=== PATIENT | female | born 1945 | race Caucasian/White ===

== ENCOUNTER 2023-12-30 19:52 | Inpatient (IN) | payer BC, OTHER ==
[~2023-12-30] VITALS: Ht 165.1 cm; Wt 43.5 kg
[2023-12-30] MEDS: IPRATROPIUM BROM 0.5 MG/2.5ML INH SOL HHN ONE (20:28)
[2023-12-30] MEDS: ALBUTEROL SULF 2.5 MG/0.5ML(0.5%) NEB SOLN HHN ONE (20:29)
[2023-12-30 20:45] LABS: Basophils # (auto) 0 10 ^3/uL (0-0.2); Basophils % (auto) 0.2 % (0.0-2.0); Eosinophils # (auto) 0.1 10 ^3/uL (0-0.8); Eosinophils % (auto) 0.6 % (0.0-7.0); Hematocrit 39.8 % (36.0-46.0); Lymphocytes # (auto) 1.3 10 ^3/uL (0.4-5.4); Lymphocytes % (auto) 12.8 % (10.0-50.0); Mean Corpuscular Hemoglobin 31.1 pg (28.0-32.0); Mean Corpuscular Hgb Conc. 32.8 g/dL (32.0-36.0); Mean Corpuscular Volume 94.9 fL (80.0-100.0); Monocytes # (auto) 0.2 10 ^3/uL (0-1.3); Monocytes % (auto) 2.4 % (0.0-12.0); Neutrophils # (auto) 8.6 10 ^3/uL (1.6-8.6); Nucleated Red Blood Cells % 0.1 %; Red Blood Cells 4.19 10^6/uL (4.0-5.20); Red Cell Distribution Width 15.1 % (11.8-14.3); White Blood Cell 10.3 10^3/uL (4.4-10.8)
[2023-12-30] MEDS: methylPREDNISolone SOD SUCC 125 MG/2 ML VL IV ONE (21:01)
[2023-12-30 21:08] LABS: Chloride 106 mmol/L (98-107); Potassium 3.9 mmol/L (3.5-5.1); Sodium 140 mmol/L (136-145)
[2023-12-30 21:09] LABS: Anion Gap 5 (5-15); Calcium 9.5 mg/dL (8.7-10.4); Carbon Dioxide 29 mmol/L (20-30)
[2023-12-30 21:14] LABS: BUN/Creatinine Ratio 11.1 (10.0-20.0); Blood Urea Nitrogen 7 mg/dL (9-23); Glucose 108 mg/dL (74-106)
[2023-12-30] MEDS ORDERED: NITROGLYCERIN 0.4 MG SL TAB SL PRN (21:15)
[2023-12-30] MEDS ORDERED: ALBUTEROL SULF 2.5 MG/0.5ML(0.5%) NEB SOLN NEB PRN (21:15)
[2023-12-30] MEDS ORDERED: MORPHINE SULFATE INJ 2 MG/ml SYRG IV PRN (21:15)
[2023-12-30] MEDS ORDERED: ONDANSETRON HCL 4 MG/2 ML VIAL IV PRN (21:15)
[2023-12-30] MEDS ORDERED: IPRATROPIUM BROM 0.5 MG/2.5ML INH SOL NEB PRN (21:15)
[2023-12-30 21:26] VITALS: BP 114/79; PULSE 114; RESP 14; TEMP 98.3; O2SAT 96
[2023-12-31] VITALS (13 sets, daily range): BP systolic 94–149; BP diastolic 42–78; PULSE 71–114; RESP 14–20; TEMP 98–98.8; O2SAT 91–96
[2023-12-31] MEDS: methylPREDNISolone SOD SUCC 40 MG/ML VL IV SCH (00:15)
[2023-12-31] MEDS: ATORVASTATIN 20 MG TAB PO SCH (00:15)
[2023-12-31] MEDS: IOHEXOL 350 MG/ML 100ML IJ ONE (01:05)
[2023-12-31] MEDS ORDERED: ALBU108A5 PO (02:19)
[2023-12-31] MEDS ORDERED: IPRA0.00 NEB (02:19)
[2023-12-31] MEDS ORDERED: TIOT17SP INH (02:19)
[2023-12-31] MEDS ORDERED: TRAZ-227 PO (02:19)
[2023-12-31] MEDS ORDERED: PRED10TA PO (02:19)
[2023-12-31] MEDS ORDERED: BUDE1AER16 PO (02:19)
[2023-12-31] MEDS ORDERED: PHEN-1045 PO (02:19)
[2023-12-31] MEDS ORDERED: DENO60SO SC (02:19)
[2023-12-31] MEDS ORDERED: MET50T PO (02:19)
[2023-12-31] MEDS ORDERED: DIAZ10TA3 PO (02:19)
[2023-12-31] MEDS ORDERED: ATOR40TA52 PO (02:19)
[2023-12-31 06:18] LABS: Chloride 104 mmol/L (98-107); Potassium 3.4 mmol/L (3.5-5.1); Sodium 138 mmol/L (136-145)
[2023-12-31 06:19] LABS: Anion Gap 6 (5-15); Carbon Dioxide 28 mmol/L (20-30)
[2023-12-31 06:20] LABS: Calcium 9.3 mg/dL (8.5-10.1)
[2023-12-31 06:25] LABS: BUN/Creatinine Ratio 13.2 (10.0-20.0); Blood Urea Nitrogen 7 mg/dL (9-23); Glucose 155 mg/dL (74-106)
[2023-12-31 06:31] LABS: Basophils # (auto) 0 10 ^3/uL (0-0.2); Eosinophils # (auto) 0 10 ^3/uL (0-0.8); Hematocrit 36.5 % (36.0-46.0); Hemoglobin 12.1 g/dL (12.2-16.2); Lymphocytes # (auto) 0.2 10 ^3/uL (0.4-5.4); Lymphocytes % (auto) 1.5 % (10.0-50.0); Mean Corpuscular Hemoglobin 31.3 pg (28.0-32.0); Mean Corpuscular Hgb Conc. 33.2 g/dL (32.0-36.0); Mean Corpuscular Volume 94.2 fL (80.0-100.0); Monocytes # (auto) 0.2 10 ^3/uL (0-1.3); Monocytes % (auto) 1.6 % (0.0-12.0); Neutrophils # (auto) 11.6 10 ^3/uL (1.6-8.6); Neutrophils % (auto) 96.9 % (37.0-80.0); Red Blood Cells 3.87 10^6/uL (4.0-5.20); Red Cell Distribution Width 14.5 % (11.8-14.3)
[2023-12-31] MEDS: cefTRIAXone 1GM/50ML D5W 50 ML IV SCH (08:54)
[2023-12-31] MEDS: METOPROLOL SUCCINATE XL 50 MG TAB PO SCH (09:05)
[2023-12-31] MEDS: ENOXAPARIN SOD 40 MG/0.4 ML SYRINGE SC SCH (09:06)
[2023-12-31] MEDS: AZITHROMYCIN 500MG/ 250ML 250 ML IV SCH (09:55)
[2023-12-31 11:57] LABS: Triglycerides 41 mg/dL (< 150)
[2023-12-31 11:58] LABS: LDL Cholesterol 60 mg/dL (< 100)
[2023-12-31 11:59] LABS: Cholesterol 186 mg/dL (< 200); HDL Cholesterol 109 mg/dL (40-59)
[2023-12-31] MEDS: ACETAMINOPHEN 325 MG TAB PO PRN (12:50)
[2023-12-31] MEDS: POTASSIUM CHL 20 Meq TABLET PO ONE (12:51)
[2023-12-31] MEDS: traZODone HCL 50 MG TAB PO ONE (22:29)
[2024-01-01] VITALS (8 sets, daily range): BP systolic 122–143; BP diastolic 55–67; PULSE 59–90; RESP 16–18; TEMP 97.3–98.4; O2SAT 93–98
[2024-01-01 06:28] LABS: Basophils # (auto) 0 10 ^3/uL (0-0.2); Basophils % (auto) 0.1 % (0.0-2.0); Eosinophils # (auto) 0 10 ^3/uL (0-0.8); Eosinophils % (auto) 0.1 % (0.0-7.0); Hematocrit 34.7 % (36.0-46.0); Hemoglobin 11.7 g/dL (12.2-16.2); Lymphocytes # (auto) 1.3 10 ^3/uL (0.4-5.4); Lymphocytes % (auto) 9.1 % (10.0-50.0); Mean Corpuscular Hemoglobin 31.3 pg (28.0-32.0); Mean Corpuscular Hgb Conc. 33.8 g/dL (32.0-36.0); Mean Corpuscular Volume 92.8 fL (80.0-100.0); Monocytes # (auto) 0.7 10 ^3/uL (0-1.3); Monocytes % (auto) 5.2 % (0.0-12.0); Neutrophils # (auto) 12.2 10 ^3/uL (1.6-8.6); Neutrophils % (auto) 85.5 % (37.0-80.0); Red Blood Cells 3.75 10^6/uL (4.0-5.20); Red Cell Distribution Width 14.4 % (11.8-14.3); White Blood Cell 14.3 10^3/uL (4.4-10.8)
[2024-01-01 06:46] LABS: Alanine Aminotransferase 98 U/L (7-40); Albumin 3.8 g/dL (3.2-4.8); Alkaline Phosphatase 51 U/L (46-116); Anion Gap 6 (5-15); Aspartate Aminotransferase 71 U/L (13-40); Bilirubin, Total 0.8 mg/dL (0.2-1.0); Blood Urea Nitrogen 12 mg/dL (9-23); Calcium 9.4 mg/dL (8.5-10.1); Carbon Dioxide 26 mmol/L (20-30); Chloride 104 mmol/L (98-107); Glucose 104 mg/dL (74-106); Potassium 3.8 mmol/L (3.5-5.1); Sodium 136 mmol/L (136-145); Total Protein 5.6 g/dL (5.7-8.2)
[2024-01-01 07:55] LABS: Free T3 2.47 pg/mL (2.3-4.2); Free T4 (Free Thyroxine) 1.34 ng/dL (0.89-1.76)
[2024-01-01] MEDS: methylPREDNISolone SOD SUCC 40 MG/ML VL IV SCH ×2 (09:16→13:00)
[2024-01-01] MEDS: levoFLOXacin 750MG 150 ML IV SCH (09:17)
[2024-01-01] MEDS ORDERED: levoFLOXacin 750MG 150 ML IV SCH (10:00)
[2024-01-02 05:00] VITALS: BP 146/72; PULSE 54; RESP 16; TEMP 98.2; O2SAT 96
[2024-01-02 07:56] LABS: Alanine Aminotransferase 89 U/L (7-40); Alkaline Phosphatase 61 U/L (46-116); Anion Gap 5 (5-15); Aspartate Aminotransferase 49 U/L (13-40); BUN/Creatinine Ratio 17.5 (10.0-20.0); Blood Urea Nitrogen 10 mg/dL (9-23); Calcium 9.7 mg/dL (8.7-10.4); Carbon Dioxide 28 mmol/L (20-30); Chloride 105 mmol/L (98-107); Glucose 79 mg/dL (74-106); Potassium 3.8 mmol/L (3.5-5.1); Sodium 138 mmol/L (136-145)
[2024-01-02 07:57] LABS: Bilirubin, Total 0.9 mg/dL (0.2-1.0); Total Protein 6.2 g/dL (5.7-8.2)
[2024-01-02 08:00] VITALS: PULSE 61; PULSE 64; RESP 16; O2SAT 98
[2024-01-02 08:57] VITALS: BP 150/70; PULSE 61; RESP 16; TEMP 98.1; O2SAT 98
[2024-01-02] MEDS ORDERED: levoFLOXacin 750MG 150 ML IV SCH (09:00)
[2024-01-02] MEDS: levoFLOXacin 750MG 150 ML IV SCH (10:56)
[2024-01-02] MEDS ORDERED: LEVO750T40 PO (12:27)
[2024-01-02] MEDS ORDERED: PRED20TA2 PO (12:27)
[2024-01-02 13:00] VITALS: BP 155/82; PULSE 77; RESP 16; TEMP 97.9; O2SAT 90
[2024-01-02] MEDS ORDERED: UMEC1AER IN (13:29)
[2024-01-02 14:05] LABS: Basophils # (auto) 0 10 ^3/uL (0-0.2); Basophils % (auto) 0.2 % (0.0-2.0); Eosinophils # (auto) 0 10 ^3/uL (0-0.8); Eosinophils % (auto) 0.1 % (0.0-7.0); Hematocrit 37.9 % (36.0-46.0); Hemoglobin 12.9 g/dL (12.2-16.2); Lymphocytes # (auto) 0.5 10 ^3/uL (0.4-5.4); Lymphocytes % (auto) 5.5 % (10.0-50.0); Mean Corpuscular Hemoglobin 32.1 pg (28.0-32.0); Mean Corpuscular Hgb Conc. 34.1 g/dL (32.0-36.0); Mean Corpuscular Volume 94.1 fL (80.0-100.0); Monocytes # (auto) 0.2 10 ^3/uL (0-1.3); Monocytes % (auto) 2.3 % (0.0-12.0); Neutrophils # (auto) 8.2 10 ^3/uL (1.6-8.6); Neutrophils % (auto) 91.9 % (37.0-80.0); Red Blood Cells 4.03 10^6/uL (4.0-5.20); Red Cell Distribution Width 14.5 % (11.8-14.3); White Blood Cell 8.9 10^3/uL (4.4-10.8)
[2024-01-02 16:59] VITALS: BP 150/70; PULSE 61; RESP 16; TEMP 36.6; O2SAT 96
[2024-01-02 17:00] VITALS: BP 150/73; PULSE 75; RESP 18; TEMP 98.9; O2SAT 97
[2024-01-03] MEDS ORDERED: levoFLOXacin 750MG 150 ML IV SCH ×2 (10:00)
== END 2024-01-02 17:45 | disposition home or self-care (01) | DRG 871 ==
LOC: EDBD 19:52 → ER 19:52 → TELE 21:14 → TELE-WESTW 23:56
PROVIDERS: ADMIT Internal Medicine Pulmonary Disease; ATTEND Internal Medicine Pulmonary Disease
DX: A41.50 Gram-negative sepsis, unspecified (principal); J15.69 Pneumonia due to other Gram-negative bacteria; J96.21 Acute and chronic respiratory failure with hypoxia; J15.9 Unspecified bacterial pneumonia; J44.1 Chronic obstructive pulmonary disease with (acute) exacerbation; J44.0 Chronic obstructive pulmonary disease with (acute) lower respiratory infection; I10 Essential (primary) hypertension; E03.9 Hypothyroidism, unspecified; E87.6 Hypokalemia; I25.10 Atherosclerotic heart disease of native coronary artery without angina pectoris; E78.5 Hyperlipidemia, unspecified; F32.A Depression, unspecified; F41.9 Anxiety disorder, unspecified; Z82.49 Family history of ischemic heart disease and other diseases of the circulatory system; Z79.899 Other long term (current) drug therapy
CPT/HCPCS: 36415; 71045; 71275; 80048; 80053; 80061; 83880; 84439; 84443; 84481; 85025; 85379; 87070; 87077; 87186; 87205; 93005; 94644; G0378; J1956

== ENCOUNTER 2024-03-31 12:20 | Emergency (ER) | payer BC ==
[~2024-03-31] VITALS: Ht 165.1 cm; Wt 40.9 kg
[~2024-03-31 12:20] MED LIST: ALBU108A5 PO; ATOR40TA52 PO; BUDE1AER16 PO; BUDE1AER4 IN; DENO60SO SC; DIAZ10TA3 PO; IPRA0.00 NEB; LEVO750T40 PO; MET50T PO; PHEN-1045 PO; PRED10TA PO; PRED20TA2 PO; TIOT17SP INH; TRAZ-227 PO; UMEC1AER IN
[2024-03-31 12:25] VITALS: BP 133/88
[2024-03-31 12:52] VITALS: PULSE 85
[2024-03-31 13:26] LABS: Urine Bacteria None Seen /hpf (None Seen)
[2024-03-31 13:35] LABS: Urine Blood Negative /uL (Negative); Urine Clarity Clear (Clear); Urine Color Colorless (Yellow); Urine Protein, UAD Negative (Negative); Urine Specific Gravity 1.005 (1.001-1.035); Urine Urobilinogen Normal (Negative); Urine WBC <1 /hpf (0 - 5)
[2024-03-31 13:56] LABS: Basophils # (auto) 0 10 ^3/uL (0-0.2); Basophils % (auto) 0.4 % (0.0-2.0); Eosinophils # (auto) 0 10 ^3/uL (0-0.8); Eosinophils % (auto) 0.7 % (0.0-7.0); Hematocrit 42.8 % (36.0-46.0); Hemoglobin 14.5 g/dL (12.2-16.2); Lymphocytes # (auto) 1.1 10 ^3/uL (0.4-5.4); Lymphocytes % (auto) 21.4 % (10.0-50.0); Mean Corpuscular Hemoglobin 32.3 pg (28.0-32.0); Mean Corpuscular Volume 95.1 fL (80.0-100.0); Monocytes # (auto) 0.4 10 ^3/uL (0-1.3); Monocytes % (auto) 7.4 % (0.0-12.0); Neutrophils # (auto) 3.7 10 ^3/uL (1.6-8.6); Neutrophils % (auto) 70.1 % (37.0-80.0); Platelet Count (auto) 186 10^3/uL (140-450); White Blood Cell 5.3 10^3/uL (4.4-10.8)
[2024-03-31 14:19] LABS: Alanine Aminotransferase 30 U/L (7-40); Albumin 4.6 g/dL (3.2-4.8); Alkaline Phosphatase 53 U/L (46-116); Anion Gap 7 (5-15); Aspartate Aminotransferase 23 U/L (13-40); Bilirubin, Total 0.5 mg/dL (0.2-1.0); Blood Urea Nitrogen 9 mg/dL (9-23); Calcium 9.9 mg/dL (8.7-10.4); Carbon Dioxide 29 mmol/L (20-30); Chloride 104 mmol/L (98-107); Glucose 95 mg/dL (74-106); Potassium 3.7 mmol/L (3.5-5.1); Sodium 140 mmol/L (136-145)
[2024-03-31 14:20] LABS: Total Protein 6.4 g/dL (5.7-8.2)
[2024-03-31] MEDS: ALBUTEROL SULF 2.5 MG/0.5ML(0.5%) NEB SOLN NEB ONE (16:20)
[2024-03-31] MEDS: IPRATROPIUM BROM 0.5 MG/2.5ML INH SOL NEB ONE (16:20)
[2024-03-31 16:22] VITALS: RESP 18; O2SAT 96
[2024-03-31] MEDS: methylPREDNISolone SOD SUCC 125 MG/2 ML VL IV ONE (23:45)
== END 2024-03-31 23:44 | disposition home or self-care (01) ==
LOC: EDBD 12:20 → EDUNIT# 12:20 → ER 12:20
DX: J44.1 Chronic obstructive pulmonary disease with (acute) exacerbation (principal); E78.5 Hyperlipidemia, unspecified; I10 Essential (primary) hypertension
CPT/HCPCS: 36415; 71045; 74176; 80053; 81001; 83605; 83880; 84484; 85025; 93005; 94640

== ENCOUNTER 2024-06-16 12:07 | Inpatient (IN) | payer BC ==
[~2024-06-16] VITALS: Ht 162.6 cm; Wt 47.5 kg
[2024-06-16] MEDS: IPRATROPIUM BROM 0.5 MG/2.5ML INH SOL HHN ONE (12:37)
[2024-06-16] MEDS: ALBUTEROL SULF 2.5 MG/0.5ML(0.5%) NEB SOLN HHN ONE (12:37)
[2024-06-16] MEDS: methylPREDNISolone SOD SUCC 125 MG/2 ML VL IV ONE (13:01)
[2024-06-16 13:08] VITALS: RESP 18; O2SAT 98
[2024-06-16 13:26] LABS: Anion Gap 7 (5-15); Calcium 10.2 mg/dL (8.7-10.4); Carbon Dioxide 30 mmol/L (20-31); Chloride 103 mmol/L (98-107); Sodium 140 mmol/L (136-145)
[2024-06-16 13:28] LABS: BUN/Creatinine Ratio 16.2 (10.0-20.0); Blood Urea Nitrogen 11 mg/dL (9-23); Glucose 88 mg/dL (74-106)
[2024-06-16 13:29] LABS: Potassium 3.2 mmol/L (3.5-5.1)
[2024-06-16 15:15] LABS: Hematocrit 43.9 % (36.0-46.0); Hemoglobin 14.9 g/dL (12.2-16.2); Mean Corpuscular Volume 94.1 fL (80.0-100.0); Platelet Count (auto) 217 10^3/uL (140-450); Red Blood Cells 4.66 10^6/uL (4.0-5.20); Red Cell Distribution Width 14.9 % (11.8-14.3); White Blood Cell 10.8 10^3/uL (4.4-10.8)
[2024-06-16 15:21] LABS: Band Neutrophils % (manual) 0; Basophils % (manual) 0 (0.0-2.0); Blast Cells 0; Eosinophils % (manual) 0 (0-7); Metamyelocytes % 0; Myelocytes % 0; Promyelocytes % 0; Reactive Lymphocytes 0
[2024-06-16] MEDS ORDERED: ONDANSETRON HCL 4 MG/2 ML VIAL IV PRN (16:30)
[2024-06-16] MEDS ORDERED: MORPHINE SULFATE INJ 2 MG/ml SYRG IV PRN (16:30)
[2024-06-16] MEDS ORDERED: MAALOX PLUS or MAALOX 30 ML PO PRN (16:30)
--- NOTE | 2024-06-16 16:49 | ED.PDOC ---
History of Present Illness HPI Comments This is an 79-year-old female who comes in with chief complaint of shortness a breath. The patient states that it started this morning. She typically uses 3- 4 L nasal cannula but the symptoms seemed to worsened so she called 911. She did try her home nebulizer at home without any significant relief. EN route, the patient was found to have a low oxygen saturation so was then given 5 L nasal cannula and her oxygen saturation went up to 97%. The patient was also given a breathing treatment EN route which seemed to help. She is currently also being treated at [facility]. Her daughter arrived and the patient is subsequently stated that she wanted to leave but decided to stay instead. The patient does have a recent history of UTI. She denies any fever or cough. Chief Complaint: Shortness of Breath Time Seen by MD: 12:18 Primary Care Provider: BUBBA Reviewed Notes: Nurses Notes, Information Consultant Notes, Medications, Allergies (No allergies to medications) Allergies: Coded Allergies: NO KNOWN ALLERGIES (Unverified , 12/30/23) Home Meds Active Scripts Budesonide-Formoterol Fumarate (Budesonide/Formoterol Fum 160-4.5 Mcg/Act) 1 Aer Aer, 2 AER IN BID, #1 AER Prov:RO ODOM PAC 02/21/24 Umeclidinium-Vilanterol (Anoro Ellipta 62.5-25 Mcg/INH) 1 Aer Aer, 1 AER IN DAILY for 30 Days, AER Prov:BRAYAN AVERY RESIDENT 01/02/24 Prednisone (Prednisone) 20 Mg Tab, 40 MG PO DAILY for 3 Days, MG Prov:BRAYAN AVERY RESIDENT 01/02/24 Levofloxacin Hemihydrate (LEVOFLOXACIN) 750 Mg Tab, 750 MG PO DAILY for 5 Days, #5 TAB Prov:BRAYAN AVERY RESIDENT 01/02/24 Reported Medications Ipratropium-Albuterol (Ipratropium [place]/Albut) 1 [place], 1 VIAL NEB QID 12/31/23 Prednisone (Prednisone) 10 Mg Tab, 1 TAB PO 12/31/23 Atorvastatin Calcium (ATORVASTATIN CALCIUM) 40 Mg Tab, 1 TAB PO DAILY 12/31/23 Metoprolol Tartrate (LOPRESSOR TABLET) 50 Mg Tb, 1 TAB PO DAILY 12/31/23 Tiotropium [place] Monohydrate (Spiriva Respimat) 2.5 Mcg/Act Spr, 2 PUFF INH DAILY 12/31/23 Trazodone Hcl (Trazodone Hcl) 50 Mg Tab, 1 TAB PO for insomenia 12/31/23 Budesonide-Formoterol Fumarate (Breyna 160-4.5 Mcg/Act) 1 Aer Aer, 2 PUFF PO 12/31/23 Diazepam (Diazepam) 10 Mg Tab, 1 TAB PO TID 12/31/23 Albuterol Sulfate (Albuterol Sulfate Hfa) 108 Mcg/Act Aer, 2 PUFF PO PRN for SHORTNESS OF BREATH 12/31/23 Phenazopyridine HCl (Phenazopyridine Hydrochol) 200 Mg Tab, 1 TAB PO TID PRN for szr 12/31/23 Denosumab (Prolia) 60 Mg/Ml [place], [place] 12/31/23 Information Source: Patient, Relative (Child), Emergency Med Personnel Mode of Arrival: EMS Severity: Moderate Timing: Hours (The symptoms started this morning) Duration: Since onset Prehospital treatment: 12 Lead EKG, Breathing Tx, Dance Coach Associated signs and symptoms No chest pain, nausea or vomiting Past Medical History PAST MEDICAL HISTORY: CAD, COPD, High Lipids, HTN, Thyroid Surgical History: , PTCA, Tonsillectomy 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 Family History Family History: Family hx of heart neel Social History Smoker: Non-Smoker Alcohol: Occasionally Drugs: Denies Drug Use Lives In: Home Constitutional: denies: chills, diaphoresis, fatigue, fever, malaise, sweats, weakness, others EENTM: denies: blurred vision, double vision, ear bleeding, ear discharge, ear drainage, ear pain, ear ringing, eye pain, eye redness, hearing loss, mouth pain, mouth swelling, nasal discharge, nose bleeding, nose congestion, nose pain, photophobia, tearing, throat pain, throat swelling, voice changes, others Respiratory: reports: shortness of breath, wheezing; denies: cough, hemoptysis, orthopnea, SOB at rest, SOB with excertion, stridor, others Cardiovascular: denies: chest pain, dizzy spells, diaphoresis, Dyspnea on exertion, edema, irregular heart beat, left arm pain, lightheadedness, palpitations, PND, syncope, others Gastrointestinal: denies: abdomen distended, abdominal pain, blood streaked bowels, constipated, diarrhea, dysphagia, difficulty swallowing, hematemesis, melena, nausea, poor appetite, poor fluid intake, rectal bleeding, rectal pain, vomiting, others Genitourinary: denies: abnormal vagina bleeding, burning, dyspareunia, dysuria, flank pain, frequency, hematuria, incontinence, pain, , vagina discharge, urgency, others Neurological: denies: dizziness, fainting, headache, left sided numbness, left sided weakness, numbness, paresthesia, pre-existing deficit, right sided numbness, right sided weakness, seizure, speech problems, tingling, tremors, weakness, others Musculoskeletal: denies: back pain, gout, joint pain, joint swelling, muscle pain, muscle stiffness, neck pain, others Integumetry: denies: bruises, change in color, change in hair/nails, dryness, laceration, lesions, lumps, rash, wounds, others Allergic/Immunocompromised: denies: Difficulty Healing, Frequent Infections, Hives, Itching, others Hematologic/Lymphatic: denies: anemia, blood clots, easy bleeding, easy bruising, swollen glands, others Endocrine: denies: excessive hunger, excessive sweating, excessive thirst, excessive urination, flushing, intolerance to cold, intolerance to heat, unexplained weight gain, unexplained weight loss, others Psychiatric: denies: anxiety, bipolar disorder, depression, hopeless, panic disorder, schizophrenia, sleepless, suicidal, others Physical Exam General Appearance: Moderate Distress, Thin HEENT: Normal ENT Inspection, Pharynx Normal, TMs Normal Neck: Full Range of Motion, Non-Tender, Normal, Normal Inspection Respiratory: Chest Non-Tender, Decreased Breath Sounds, No Accessory Muscle Use, Respiratory Distress, Wheezing Cardiovascular: No Edema, No JVD, No Murmur, No Gallop, Normal Peripheral Pulses, Regular Rate/Rhythm Breast Exam: Deferred Gastrointestinal: No Organomegaly, Non Tender, No Pulsatile Mass, Normal Bowel Sounds, Soft Genitalia: Deferred Pelvic: Deferred Rectal: Deferred Extremities: No calf tenderness, Normal capillary refill, Normal inspection, Normal range of motion, Non-tender, No pedal edema Musculoskeletal : Apperance: Normal Neurologic: Alert, mortgage funder II-XII nml as Tested, No Motor Deficits, Normal Affect, Normal Mood, No Sensory Deficits Cerebellar Function: Normal Reflexes: Normal Skin: Dry, Normal Color, Warm Lymphatic: No Adenopathy Was a procedure done? Was a procedure done?: No EKG EKG : Pulse Rate (adult): 81 [place]: Normal Cardiac Rhythm: NSR Block: None ST: Nonsp Differential Dx Considerations may include: COPD, pneumonia, CHF X-Ray, Labs, Meds, VS Vital Signs Date Time Temp Pulse Resp B/P (MAP) Pulse Ox O2 Delivery O2 Flow Rate FiO2 06/16/24 13:11 97.9 94 17 154/85 (108) 100 97.9 06/16/24 13:11 94 17 100 Nasal Cannula 5.0 06/16/24 13:08 18 98 Room Air* 0 21 06/16/24 12:37 18 94 Nasal Cannula* 3 32 06/16/24 12:21 81 06/16/24 12:07 97.6 92 18 157/99 (118) 98 Lab Test 06/16/24 14:44 06/16/24 12:49 Range/Units White Blood Count 10.8 4.4-10.8 10^3/uL Red Blood Count 4.66 4.0-5.20 10^6/uL Hemoglobin 14.9 12.2-16.2 g/dL Hematocrit 43.9 36.0-46.0 % Mean Corpuscular Volume 94.1 80.0-100.0 fL Mean Corpuscular Hemoglobin 32.0 28.0-32.0 pg Mean Corpuscular Hemoglobin Concent 34.0 32.0-36.0 g/dL Red Cell Distribution Width 14.9 H 11.8-14.3 % Platelet Count 217 140-450 10^3/uL Mean Platelet Volume 7.2 6.9-10.8 fL Neutrophils (%) (Auto) 37.0-80.0 % Lymphocytes (%) (Auto) 10.0-50.0 % Monocytes (%) (Auto) 0.0-12.0 % Basophils (%) (Auto) 0.0-2.0 % Neutrophils # (Auto) 1.6-8.6 10 ^3/uL Lymphocytes # (Auto) 0.4-5.4 10 ^3/uL Monocytes # (Auto) 0-1.3 10 ^3/uL Differential Total Cells Counted Pending Neutrophils % (Manual) Pending Band Neutrophils % (Manual) Pending Lymphocytes % (Manual) Pending Monocytes % (Manual) Pending Eosinophils % (Manual) Pending Basophils % (Manual) Pending Metamyelocytes % (manual) Pending Myelocytes % (Manual) Pending Promyelocytes % (Manual) Pending Blast Cells % (Manual) Pending Reactive Lymphocytes Pending Platelet Estimate Pending Sodium Level 140 136-145 mmol/L Potassium Level 3.2 L 3.5-5.1 mmol/L Chloride Level 103 98-107 mmol/L Carbon Dioxide Level 30 20-31 mmol/L Anion Gap 7 5-15 Blood Urea Nitrogen 11 9-23 mg/dL Creatinine 0.68 0.550-1.02 mg/dL Glomerular Filtration Rate Calc 88 >90 mL/min BUN/Creatinine Ratio 16.2 10.0-20.0 Serum Glucose 88 74-106 mg/dL Calcium Level 10.2 8.7-10.4 mg/dL Current Medications Medications (Trade) Dose Ordered Sig/Dharmesh Route Start Time Stop Time Status Last Admin Methylprednisolone Sodium Succinate (Solu Medrol) 125 mg ONCE ONCE IV 06/16/24 12:30 06/16/24 12:31 DC 06/16/24 13:01 Ipratropium [place] (Atrovent Medneb) 1 mg ONCE ONCE [facility] 06/16/24 12:30 06/16/24 12:31 DC 06/16/24 12:37 Albuterol (Ventolin Medneb) 10 mg ONCE ONCE [facility] 06/16/24 12:30 06/16/24 12:31 DC 06/16/24 12:37 The patient's CBC is within normal limits The chemistry panel shows mild hypokalemia at 3.2 The patient was given continuous breathing treatment of albuterol and Atrovent The patient was given Solu-Medrol 125 mg IV push The chest x-ray shows: No sign of any significant abnormalities The patient was being admitted to the hospitalist at this time We have reviewed the lab results with the patient and they are in agreement with the management. Images Reviewed?: Images reviewed and evaluated by me Time of 1ST Reevaluation: 18:09 Reevaluation 1ST: Unchanged Patient Education/Counseling: Diagnosis, Treatment, Prognosis Family Education/Counseling: Diagnosis, Treatment, Prognosis Departure 1 Departure Time of Disposition: 18:10 Impression: Primary Impression: Acute respiratory failure Qualified Codes: J96.01 - Acute respiratory failure with hypoxia Additional Impression: COPD exacerbation Disposition: 09 ADMITTED INPATIENT Admit to: Tele Condition: Fair Critical Care Note Critical Care Time?: Yes (35 min-critical care time only) Stability Stability form required: Yes Unstable for transfer: Telemetry monitoring (Telemetry monitoring required), ED Physician Assesment (Clinical assesment) Heart Score Heart Score: Heart Score Response (Comments) Value History Moderate Suspicious 1 EKG Repolarization Disturb 1 Age >65 2 Risk Factors >3 or Hx ASHD 2 Troponin N/A 0 Total 6 CHANI ARREGUIN MD Jun 16, 2024 16:49
--- NOTE | 2024-06-16 17:05 | DVHHP2 ---
History of Present Illness Reason for Visit: Shortness of breaths History of Present Illness 79-year-old female with a past medical history of hypertension hyperlipidemia thyroid disorder COPD and CAD comes to the ED for evaluation of stated shortness of breath patient has been feeling short of breath for the past day or so making it more difficult for her to breathe ambulate and function at home patient currently denies having a fever but does have a productive cough chest x-ray was completed in the ED and patient was recommended for inpatient evaluation management and continued care Cardiovascular: CAD Pulmonary: COPD Review of Systems Constitutional: No: Fever, Chills, Sweats, Weakness, Malaise, Other Eyes: No: Pain, Vision change, Conjunctivae inflammation, Eyelid inflammation, Other, Redness ENT: No: Ear pain, Ear discharge, Nose pain, Nose discharge, Nose congestion, Mouth pain, Mouth swelling, Throat pain, Throat swelling, Other Respiratory: Cough, Dry, Shortness of breath; No: SOB with excertion, Wheezing, Hemoptysis, Pleuritic Pain, Sputum, Wheezing, Other Cardiovascular: Chest Pain; No: Palpitations, Orthopnea, Paroxysmal Noc. Dyspnea, Edema, Lt Headedness, Other Gastrointestinal: No: Nausea, Vomiting, Abdominal Pain, Diarrhea, Constipation, Melena, Hematochezia, Other Genitourinary: No Dysuria, No Frequency, No Incontinence, No Hematuria, No Retention, No Other Musculoskeletal: No: other, neck pain, shoulder pain, arm pain, back pain, hand pain, leg pain, foot pain Skin: No: Rash, Lesions, Jaundice, Bruising, Other Neurological: No: Weakness, Numbness, Incoordination, Change in speech, Confusion, Seizures, Other Allergies: Coded Allergies: NO KNOWN ALLERGIES (Unverified , 12/30/23) Medications Current Medications Medications Dose Ordered Sig/Dharmesh Route Start Time Stop Time Status Last Admin Dose Admin Ceftriaxone Sodium 50 ml @ 100 mls/hr DAILY@0900 IV 06/16/24 16:55 Azithromycin 500 mg DAILY PO 06/17/24 10:00 Albuterol 2.5 mg Q4HPRN PRN NEB 06/16/24 16:30 Ipratropium [place] 0.5 mg Q4HPRN PRN NEB 06/16/24 16:30 Methylprednisolone Sodium Succinate 40 mg BID IV 06/16/24 22:00 Metoprolol Tartrate 50 mg DAILY PO 06/17/24 10:00 Future Hold Trazodone HCl 50 mg QPM PO 06/16/24 18:00 Atorvastatin Calcium 40 mg HS PO 06/16/24 22:00 Sodium Chloride 1,000 ml @ 60 mls/hr [id number] IV 06/16/24 16:30 Al Hydrox/Mg Hydrox/Simethicone 30 ml Q6HP PRN PO 06/16/24 16:30 Docusate Sodium 100 mg BIDPRN PRN PO 06/16/24 16:30 Acetaminophen 650 mg Q6HP PRN PO 06/16/24 16:30 Acetaminophen/ Hydrocodone Bitart 1 tab Q4HP PRN PO 06/16/24 16:30 Ondansetron HCl 4 mg Q4HP PRN IV 06/16/24 16:30 Morphine Sulfate 2 mg Q4HPRN PRN IV 06/16/24 16:30 Exam Vital Signs Vital Signs Date Time Temp Pulse Resp B/P (MAP) Pulse Ox O2 Delivery O2 Flow Rate FiO2 06/16/24 13:11 97.9 94 17 154/85 (108) 100 97.9 06/16/24 13:11 Nasal Cannula 5.0 06/16/24 13:08 21 General Appearance: Alert, Oriented X3, Cooperative, moderate distress HEENT: Atraumatic, PERRLA Respiratory: Clear to auscultation (Mild wheezing), Normal air movement Cardiovascular: Regular rate, Normal S1, Normal S2 Abdominal: Soft, No tenderness Extremities: No clubbing, No edema Skin: No rashes, No breakdown Neuro: Normal gait, Normal speech Psych/Mental Status: Mood NL Labs/Xrays Labs Test 06/16/24 14:44 06/16/24 12:49 Range/Units White Blood Count 10.8 4.4-10.8 10^3/uL Red Blood Count 4.66 4.0-5.20 10^6/uL Hemoglobin 14.9 12.2-16.2 g/dL Hematocrit 43.9 36.0-46.0 % Mean Corpuscular Volume 94.1 80.0-100.0 fL Mean Corpuscular Hemoglobin 32.0 28.0-32.0 pg Mean Corpuscular Hemoglobin Concent 34.0 32.0-36.0 g/dL Red Cell Distribution Width 14.9 H 11.8-14.3 % Platelet Count 217 140-450 10^3/uL Mean Platelet Volume 7.2 6.9-10.8 fL Neutrophils (%) (Auto) 37.0-80.0 % Lymphocytes (%) (Auto) 10.0-50.0 % Monocytes (%) (Auto) 0.0-12.0 % Basophils (%) (Auto) 0.0-2.0 % Neutrophils # (Auto) 1.6-8.6 10 ^3/uL Lymphocytes # (Auto) 0.4-5.4 10 ^3/uL Monocytes # (Auto) 0-1.3 10 ^3/uL Sodium Level 140 136-145 mmol/L Potassium Level 3.2 L 3.5-5.1 mmol/L Chloride Level 103 98-107 mmol/L Carbon Dioxide Level 30 20-31 mmol/L Anion Gap 7 5-15 Blood Urea Nitrogen 11 9-23 mg/dL Creatinine 0.68 0.550-1.02 mg/dL Glomerular Filtration Rate Calc 88 >90 mL/min BUN/Creatinine Ratio 16.2 10.0-20.0 Serum Glucose 88 74-106 mg/dL Calcium Level 10.2 8.7-10.4 mg/dL Assessment/Plan Assessment/Plan Admit to med surge Suspected acute on chronic COPD exacerbation Possible community-acquired pneumonia History of hypertension History of thyroid disorder We will treat patient's acute on chronic COPD exacerbation as pneumonia We will treat with Rocephin and azithromycin We will continue with patient's home medications P.r.n. breathing treatments Urinalysis still pending rule out acute UTI given the patient's age and history Plan discussed with: Patient My Orders Orders - EBONI JUSTIN MD Procedure Category Date Status Time Azithromycin Tablet PHA 06/17/24 In Process (Zithromax Tablet) 10:00 Albuterol Medneb PHA 06/16/24 In Process (Ventolin Medneb) 16:30 Ipratropium Medneb PHA 06/16/24 In Process (Atrovent Medneb) 16:30 Med Neb Initial RT 06/16/24 Logged Treatment 16:27 Methylprednisolone PHA 06/16/24 In Process Sod Succ (Solu Medrol 22:00 Metoprolol Tartrate PHA 06/17/24 In Process Tablet (Lopressor Ta 10:00 Trazodone Hcl PHA 06/16/24 In Process (Desyrel) 18:00 Admit ADMIT 06/16/24 Transmitted 16:27 Code Status CODE 06/16/24 Transmitted 16:27 Vital Signs SUSAN 06/16/24 In Process 16:27 Review Orders With [facility] 06/16/24 In Process Adm. 16:27 Regular Diet DIET 06/16/24 Transmitted Dinner Sodium Chloride 0.9% PHA 06/16/24 In Process 16:30 Alum & Mag PHA 06/16/24 In Process Hydrox-Simethicone 16:30 Docusate Sodium PHA 06/16/24 In Process Capsule (Colace 16:30 Acetaminophen Tablet PHA 06/16/24 In Process (Tylenol Tablet) 16:30 Notify Md Of Changes [facility] 06/16/24 In Process From Base 16:27 Advance Directive SUSAN 06/16/24 In Process 16:27 Basic Metabolic Panel LAB 06/17/24 Verified 04:00 Complete Blood Count LAB 06/17/24 Verified 04:00 Patient Condition ORDERS 06/16/24 Transmitted 16:27 Allergies SUSAN 06/16/24 In Process 16:27 Hydrocodone-Acet PHA 06/16/24 In Process 5/325mg Tab ([place] 16:30 Ondansetron Hcl PHA 06/16/24 In Process (Zofran) 16:30 Morphine Sulfate PHA 06/16/24 In Process Injection 16:30 Notify Md Of Changes [facility] 06/16/24 In Process From Base 16:27 Communications Marketing Intern For [facility] 06/16/24 In Process 24 Hours 16:27 Oxygen By Nasal RT 06/16/24 Transmitted Cannula 16:27 Ceftriaxone 1gm/50ml PHA 06/16/24 In Process D5w (Rocephin) 16:55 Atorvastatin (Lipitor) PHA 06/16/24 In Process 22:00 Problem List: (1) BMI less than 19,adult (2) Community acquired pneumonia (3) COPD exacerbation Date of Service: Jun 16, 2024 Billing Provider: EBONI JUSTIN MD Common Visit Codes: [id number] INP/OBS CARE (HIGH) EBONI JUSTIN MD Jun 16, 2024 17:05
[2024-06-16] MEDS: SODIUM CHLORIDE 0.9% 1,000 ML IV SCH (18:13)
[2024-06-16 18:14] VITALS: BP 124/61; PULSE 102; RESP 13; TEMP 97.8; O2SAT 99
[2024-06-16] MEDS: cefTRIAXone 1GM/50ML D5W 50 ML IV SCH (18:20)
[2024-06-16] MEDS: traZODone HCL 50 MG TAB PO SCH (18:30)
[2024-06-16 18:48] LABS: Lymphocytes % (manual) 10 (10.0-50.0); Monocytes % (manual) 5 (0-12); Platelet Estimate Adequate
[2024-06-16 18:49] LABS: Ovalocytes FEW
[2024-06-16 19:27] LABS: Urine Bacteria None Seen /hpf (None Seen)
[2024-06-16 19:46] LABS: Urine Blood Negative /uL (Negative); Urine Clarity Clear (Clear); Urine Color Colorless (Yellow); Urine Protein, UAD Negative (Negative); Urine Specific Gravity 1.004 (1.001-1.035); Urine Urobilinogen Normal (Negative); Urine WBC <1 /hpf (0 - 5)
[2024-06-16 21:00] VITALS: BP 103/55; PULSE 91; RESP 18; TEMP 98.8; O2SAT 97
[2024-06-16] MEDS: methylPREDNISolone SOD SUCC 40 MG/ML VL IV SCH (22:27)
[2024-06-16] MEDS: ATORVASTATIN 20 MG TAB PO SCH (22:27)
[2024-06-16 22:42] VITALS: PULSE 91; RESP 18; O2SAT 97
[2024-06-16] MEDS: IPRATROPIUM BROM 0.5 MG/2.5ML INH SOL NEB PRN (22:42)
[2024-06-16] MEDS: ALBUTEROL SULF 2.5 MG/0.5ML(0.5%) NEB SOLN NEB PRN (22:42)
[2024-06-16 22:49] VITALS: PULSE 82; RESP 18; O2SAT 99
[2024-06-16] MEDS ORDERED: AMLO1TAB22 PO (23:11)
[2024-06-16] MEDS ORDERED: DORZ2SOL EACHEYE (23:16)
[2024-06-16] MEDS ORDERED: ASPI-543 PO (23:16)
[2024-06-17] VITALS (13 sets, daily range): BP systolic 103–154; BP diastolic 55–96; PULSE 84–104; RESP 16–20; TEMP 97.2–99; O2SAT 93–100
[2024-06-17] MEDS: ACETAMINOPHEN 325 MG TAB PO PRN (00:56)
[2024-06-17 07:15] LABS: Basophils # (auto) 0 10 ^3/uL (0-0.2); Eosinophils # (auto) 0 10 ^3/uL (0-0.8); Hematocrit 33.4 % (36.0-46.0); Hemoglobin 11.5 g/dL (12.2-16.2); Lymphocytes # (auto) 0.4 10 ^3/uL (0.4-5.4); Mean Corpuscular Hemoglobin 32.4 pg (28.0-32.0); Mean Corpuscular Hgb Conc. 34.5 g/dL (32.0-36.0); Monocytes # (auto) 0.2 10 ^3/uL (0-1.3); Monocytes % (auto) 2.9 % (0.0-12.0); Neutrophils # (auto) 5.9 10 ^3/uL (1.6-8.6); Neutrophils % (auto) 91.1 % (37.0-80.0); Platelet Count (auto) 190 10^3/uL (140-450); Red Blood Cells 3.55 10^6/uL (4.0-5.20); Red Cell Distribution Width 14.8 % (11.8-14.3); White Blood Cell 6.5 10^3/uL (4.4-10.8)
[2024-06-17 07:20] LABS: Anion Gap 5 (5-15); Calcium 9.3 mg/dL (8.7-10.4); Carbon Dioxide 29 mmol/L (20-31); Chloride 103 mmol/L (98-107); Potassium 3.5 mmol/L (3.5-5.1); Sodium 137 mmol/L (136-145)
[2024-06-17 07:26] LABS: BUN/Creatinine Ratio 19.3 (10.0-20.0); Blood Urea Nitrogen 11 mg/dL (9-23); Glucose 129 mg/dL (74-106)
[2024-06-17] MEDS: HYDROcodone-ACET 5/325MG TAB PO PRN (07:50)
--- NOTE | 2024-06-17 08:34 | DVH ---
CHEST RADIOGRAPH Indication: sob Technique: Single frontal view of the chest was obtained Comparison: XY CHEST PORTABLE on DOS: 03/31/24, XY CHEST PORTABLE on DOS: 02/21/24, XY CHEST PORTABLE on DOS: 12/30/23 FINDINGS: Lines and Tubes: None Lungs: No focal consolidation. Pleura: No effusion. No pneumothorax. Cardiomediastinal contours: Unremarkable Bones: No acute osseous abnormality. IMPRESSION: No acute cardiopulmonary disease. SHETH
[2024-06-17] MEDS: AZITHROMYCIN 250 MG TAB PO SCH (09:16)
[2024-06-17] MEDS ORDERED: METOPROLOL TARTRATE 50 MG TAB PO SCH (10:00)
--- NOTE | 2024-06-17 12:48 | DVHPN2 ---
Reviewed: Care Plan, H&P, Labs, Medications, Previous Orders, Radiology Changes from previous H/P or p: No Changes Eyes: No Pain, No Vision change, No Conjunctivae inflammation, No Eyelid inflammation, No Other, No Redness ENT: No Ear pain, No Ear discharge, No Nose pain, No Nose discharge, No Nose congestion, No Mouth pain, No Mouth swelling, No Throat pain, No Throat swelling, No Other Cardiovascular: Chest Pain; No Palpitations, No Orthopnea, No Paroxysmal Noc. Dyspnea, No Edema, No Lt Headedness, No Other Respiratory: Cough, Dry, Shortness of breath; No SOB with excertion, No Wheezing, No Hemoptysis, No Pleuritic Pain, No Sputum, No Other Gastrointestinal: No Nausea, No Vomiting, No Abdominal Pain, No Diarrhea, No Constipation, No Melena, No Hematochezia, No Other Genitourinary: No Dysuria, No Frequency, No Incontinence, No Hematuria, No Retention, No Other Musculoskeletal: No other, No neck pain, No shoulder pain, No arm pain, No back pain, No hand pain, No leg pain, No foot pain Skin: No Rash, No Lesions, No Jaundice, No Bruising, No Other Objective Vitals Vital Signs Date Time Temp Pulse Resp B/P (MAP) Pulse Ox O2 Delivery O2 Flow Rate FiO2 06/17/24 10:00 99 Nasal Cannula* 4 36 06/17/24 09:10 98 16 06/17/24 09:00 98.7 113/65 (81) 98.7 Intake/Output Intake and Output 06/17/24 07:00 Intake Total 450 ml Balance 450 ml Intake Oral 400 ml IV Total 50 ml # Voids 2 Medications Current Medications Medications Dose Ordered Sig/Dharmesh Route Start Time Stop Time Status Last Admin Dose Admin Ceftriaxone Sodium 50 ml @ 100 mls/hr DAILY@0900 IV 06/16/24 16:55 06/17/24 09:16 100 MLS/HR Azithromycin 500 mg DAILY PO 06/17/24 10:00 06/17/24 09:16 500 MG Albuterol 2.5 mg Q4HPRN PRN NEB 06/16/24 16:30 06/17/24 09:04 2.5 MG Ipratropium [place] 0.5 mg Q4HPRN PRN NEB 06/16/24 16:30 06/17/24 09:04 0.5 MG Methylprednisolone Sodium Succinate 40 mg BID IV 06/16/24 22:00 06/17/24 09:16 40 MG Metoprolol Tartrate 50 mg DAILY PO 06/17/24 10:00 Hold Trazodone HCl 50 mg QPM PO 06/16/24 18:00 06/16/24 18:30 50 MG Atorvastatin Calcium 40 mg HS PO 06/16/24 22:00 06/16/24 22:27 40 MG Sodium Chloride 1,000 ml @ 60 mls/hr [id number] IV 06/16/24 16:30 06/16/24 18:13 60 MLS/HR Al Hydrox/Mg Hydrox/Simethicone 30 ml Q6HP PRN PO 06/16/24 16:30 Docusate Sodium 100 mg BIDPRN PRN PO 06/16/24 16:30 Acetaminophen 650 mg Q6HP PRN PO 06/16/24 16:30 06/17/24 00:56 650 MG Acetaminophen/ Hydrocodone Bitart 1 tab Q4HP PRN PO 06/16/24 16:30 06/17/24 07:50 1 TAB Ondansetron HCl 4 mg Q4HP PRN IV 06/16/24 16:30 Morphine Sulfate 2 mg Q4HPRN PRN IV 06/16/24 16:30 Laboratory Results Laboratory Tests 06/17/24 06:19 Chemistry Test 06/16/24 12:49 06/17/24 06:19 Calcium Level 10.2 mg/dL (8.7-10.4) 9.3 mg/dL (8.7-10.4) Urinalysis Test 06/16/24 19:25 Urine Color Colorless (Yellow) Urine Clarity Clear (Clear) Urine pH 7.0 (5.0-9.0) Urine Specific [place] 1.004 (1.001-1.035) Urine Protein Negative (Negative) Urine Ketones Negative (Negative) Urine Blood Negative /uL (Negative) Urine Nitrite Negative (Negative) Urine Bilirubin Negative (Negative) Urine Urobilinogen Normal mg/dL (Negative) Urine Leukocyte Esterase Negative /uL (Negative) Urine RBC 2 /hpf (0 - 4) Urine WBC <1 /hpf (0 - 5) Urine Squamous Epithelial Cells Few /hpf (<5) Urine Bacteria None seen /hpf (None Seen) Urine Glucose Normal mg/dL (Normal) Labs and/or images reviewed: Labs reviewed by me, Image(s) reviewed by me Assessment/Plan Assessment/Plan Acute hypoxic respiratory failure likely due to left lower lobe pneumonia Rocephin azithromycin Acute COPD exacerbation: Albuterol med nebs Solu-Medrol D-dimer Hypertension Hypercholesterolemia History of CVA Chronic history of smoking quit 20 years ago Use of home oxygen 3 L per minute Plan discussed with: Patient Date of Service: Jun 17, 2024 Billing Provider: CINDY SULLIVAN MD Common Visit Codes: [id number] INP/OBS CARE(HIGH) CINDY SULLIVAN MD Jun 17, 2024 12:48
[2024-06-17] MEDS ORDERED: traZODone HCL 50 MG TAB PO SCH (22:00)
[2024-06-17] MEDS: traZODone HCL 50 MG TAB PO ONE (22:04)
[2024-06-18] VITALS (15 sets, daily range): BP systolic 111–143; BP diastolic 50–85; PULSE 75–107; RESP 14–20; TEMP 97.5–98.4; O2SAT 96–100
[2024-06-18 03:18] LABS: Rapid Influenza A Negative (Negative); Rapid Influenza B Negative (Negative)
[2024-06-18 03:19] LABS: COVID19 ANTIGEN SOFIA FIA NEGATIVE (NEGATIVE)
[2024-06-18 07:58] LABS: Alanine Aminotransferase 22 U/L (7-40); Albumin 3.6 g/dL (3.2-4.8); Anion Gap 5 (5-15); Aspartate Aminotransferase 14 U/L (13-40); BUN/Creatinine Ratio 21.1 (10.0-20.0); Blood Urea Nitrogen 12 mg/dL (9-23); Calcium 9.2 mg/dL (8.7-10.4); Carbon Dioxide 27 mmol/L (20-31); Chloride 107 mmol/L (98-107); Potassium 3.9 mmol/L (3.5-5.1); Sodium 139 mmol/L (136-145)
[2024-06-18 08:01] LABS: Alkaline Phosphatase 41 U/L (46-116); Glucose 114 mg/dL (74-106)
[2024-06-18 08:02] LABS: Total Protein 5.2 g/dL (5.7-8.2)
[2024-06-18 08:08] LABS: Basophils # (auto) 0 10 ^3/uL (0-0.2); Eosinophils # (auto) 0 10 ^3/uL (0-0.8); Hematocrit 34.6 % (36.0-46.0); Hemoglobin 11.7 g/dL (12.2-16.2); Lymphocytes # (auto) 0.4 10 ^3/uL (0.4-5.4); Lymphocytes % (auto) 4.4 % (10.0-50.0); Mean Corpuscular Hgb Conc. 33.8 g/dL (32.0-36.0); Mean Corpuscular Volume 94.5 fL (80.0-100.0); Monocytes # (auto) 0.3 10 ^3/uL (0-1.3); Monocytes % (auto) 3.2 % (0.0-12.0); Neutrophils % (auto) 92.4 % (37.0-80.0); Nucleated Red Blood Cells % 0.1 %; Platelet Count (auto) 183 10^3/uL (140-450); Red Blood Cells 3.66 10^6/uL (4.0-5.20); Red Cell Distribution Width 15.1 % (11.8-14.3); White Blood Cell 8.6 10^3/uL (4.4-10.8)
[2024-06-18 08:46] LABS: Bilirubin, Total 0.4 mg/dL (0.2-1.0)
--- NOTE | 2024-06-18 11:47 | DVHPN2 ---
Reviewed: Care Plan, H&P, Labs, Medications, Previous Orders, Radiology Changes from previous H/P or p: No Changes Eyes: No Pain, No Vision change, No Conjunctivae inflammation, No Eyelid inflammation, No Other, No Redness ENT: No Ear pain, No Ear discharge, No Nose pain, No Nose discharge, No Nose congestion, No Mouth pain, No Mouth swelling, No Throat pain, No Throat swelling, No Other Cardiovascular: Chest Pain; No Palpitations, No Orthopnea, No Paroxysmal Noc. Dyspnea, No Edema, No Lt Headedness, No Other Respiratory: Cough, Dry, Shortness of breath; No SOB with excertion, No Wheezing, No Hemoptysis, No Pleuritic Pain, No Sputum, No Other Gastrointestinal: No Nausea, No Vomiting, No Abdominal Pain, No Diarrhea, No Constipation, No Melena, No Hematochezia, No Other Genitourinary: No Dysuria, No Frequency, No Incontinence, No Hematuria, No Retention, No Other Musculoskeletal: No other, No neck pain, No shoulder pain, No arm pain, No back pain, No hand pain, No leg pain, No foot pain Skin: No Rash, No Lesions, No Jaundice, No Bruising, No Other Objective Vitals Vital Signs Date Time Temp Pulse Resp B/P (MAP) Pulse Ox O2 Delivery O2 Flow Rate FiO2 06/18/24 09:00 97.6 75 16 118/62 (80) 99 97.6 06/18/24 08:49 Nasal Cannula 3.0 06/18/24 08:49 32 Intake/Output Intake and Output 06/18/24 07:00 Intake Total 1025 ml Balance 1025 ml Intake Oral 1025 ml # Voids 7 Medications Current Medications Medications Dose Ordered Sig/Dharmesh Route Start Time Stop Time Status Last Admin Dose Admin Ceftriaxone Sodium 50 ml @ 100 mls/hr DAILY@0900 IV 06/16/24 16:55 06/18/24 08:56 100 MLS/HR Azithromycin 500 mg DAILY PO 06/17/24 10:00 06/18/24 08:57 500 MG Albuterol 2.5 mg Q4HPRN PRN NEB 06/16/24 16:30 06/18/24 08:49 2.5 MG Ipratropium [place] 0.5 mg Q4HPRN PRN NEB 06/16/24 16:30 06/18/24 08:49 0.5 MG Methylprednisolone Sodium Succinate 40 mg BID IV 06/16/24 22:00 06/18/24 08:57 40 MG Metoprolol Tartrate 50 mg DAILY PO 06/17/24 10:00 Hold Atorvastatin Calcium 40 mg HS PO 06/16/24 22:00 06/17/24 22:04 40 MG Sodium Chloride 1,000 ml @ 60 mls/hr [id number] IV 06/16/24 16:30 06/18/24 02:30 60 MLS/HR Al Hydrox/Mg Hydrox/Simethicone 30 ml Q6HP PRN PO 06/16/24 16:30 Docusate Sodium 100 mg BIDPRN PRN PO 06/16/24 16:30 Acetaminophen 650 mg Q6HP PRN PO 06/16/24 16:30 06/17/24 00:56 650 MG Acetaminophen/ Hydrocodone Bitart 1 tab Q4HP PRN PO 06/16/24 16:30 06/18/24 06:58 1 TAB Ondansetron HCl 4 mg Q4HP PRN IV 06/16/24 16:30 Morphine Sulfate 2 mg Q4HPRN PRN IV 06/16/24 16:30 Trazodone HCl 50 mg HS PO 06/18/24 22:00 Laboratory Results Laboratory Tests 06/18/24 07:04 Chemistry Test 06/18/24 07:04 Albumin 3.6 g/dL (3.2-4.8) Calcium Level 9.2 mg/dL (8.7-10.4) Total Protein 5.2 g/dL (5.7-8.2) L Coagulation Test 06/17/24 13:34 D-Dimer, Quantitative 2.95 mg/L FEU (0.0-0.49) H LFT Test 06/18/24 07:04 Alanine Aminotransferase (ALT) 22 U/L (7-40) Alkaline Phosphatase 41 U/L (46-116) L Aspartate Amino Transferase (AST) 14 U/L (13-40) Total Bilirubin 0.4 mg/dL (0.2-1.0) Urinalysis Test 06/16/24 19:25 Urine Color Colorless (Yellow) Urine Clarity Clear (Clear) Urine pH 7.0 (5.0-9.0) Urine Specific [place] 1.004 (1.001-1.035) Urine Protein Negative (Negative) Urine Ketones Negative (Negative) Urine Blood Negative /uL (Negative) Urine Nitrite Negative (Negative) Urine Bilirubin Negative (Negative) Urine Urobilinogen Normal mg/dL (Negative) Urine Leukocyte Esterase Negative /uL (Negative) Urine RBC 2 /hpf (0 - 4) Urine WBC <1 /hpf (0 - 5) Urine Squamous Epithelial Cells Few /hpf (<5) Urine Bacteria None seen /hpf (None Seen) Urine Glucose Normal mg/dL (Normal) Microbiology Microbiology Date/Time Source Procedure Growth Status 06/16/24 19:10 Nose MRSA Screen - Final Complete Labs and/or images reviewed: Labs reviewed by me, Image(s) reviewed by me Assessment/Plan Assessment/Plan Acute hypoxic respiratory failure likely due to left lower lobe pneumonia Rocephin azithromycin Acute COPD exacerbation: Albuterol med nebs Solu-Medrol D-dimer 2.95, CT chest angiogram ordered to rule out PE Hypertension Hypercholesterolemia History of CVA Chronic history of smoking quit 20 years ago Use of home oxygen 3 L per minute Plan discussed with: Patient Date of Service: Jun 18, 2024 Billing Provider: CINDY SULLIVAN MD Common Visit Codes: [id number] INP/OBS CARE(HIGH) CINDY SULLIVAN MD Jun 18, 2024 11:47
[2024-06-18] MEDS ORDERED: IOHEXOL 350 MG/ML 100ML IJ ONE (16:01)
--- NOTE | 2024-06-18 16:36 | DVH ---
CTA Chest with intravenous contrast INDICATION: Elevated D-dimer rule out PE COMPARISON: CT CT ANGIO CHEST CONTRAST on DOS: 02/21/24, CT CT ANGIO CHEST CONTRAST on DOS: 12/31/23 TECHNIQUE: Multidetector spiral CTA of the chest was performed of the chest with intravenous contrast . PULMONARY ANGIOGRAPHY PROTOCOL was utilized using a bolus-tracking technique centered on the main p ulmonary artery. Axial, coronal and sagittal multiplanar and MIP reformats were performed. CONTRAST: Type of contrast: Omni 350 Contrast injected: 89 ml Radiation dose : Chest: CTDI volume is 19 mGy. Dose-length product is 182 mGy*cm The dose indicators for CT are the volume computed Tomography (CT) dose Index (CTDIvol) and the dose Length product (DLP), and are measured in units of mGy and mGy-cm, respectively. These indicators are not patient dose, but values generated from the CT scanner acquisition factors. The report includes radiation exposure data for exposures received during this examination. Findings: Pulmonary artery: No pulmonary embolism Lower neck: Right thyroid cyst or nodule Lungs: Emphysematous changes in both lungs. Small left pleural effusion. Bibasilar atelectasis and co nsolidation. Heart/Vascular Structures: Normal heart size. No pericardial effusion. Ectatic ascending aorta measur ing up to 40 mm. Lymph Nodes: No adenopathy Pleura: Small left pleural effusion as above Musculoskeletal: No acute osseous abnormality. Soft tissues: Normal. Upper abdomen: Left renal cyst. IMPRESSION: 1. No pulmonary embolism. 2. Small left pleural effusion. Bibasilar atelectasis and consolidation. Ascending aortic aneurysm measuring up to 40 mm. HS:Y
[2024-06-18] MEDS: traZODone HCL 50 MG TAB PO SCH (21:29)
[2024-06-19] VITALS (9 sets, daily range): BP systolic 117–149; BP diastolic 55–84; PULSE 72–100; RESP 14–20; TEMP 36.6; O2SAT 16–100
[2024-06-19] MEDS: DOCUSATE SOD 100 MG CAP PO PRN (00:10)
--- NOTE | 2024-06-19 11:09 | DVHPN2 ---
Reviewed: Care Plan, H&P, Labs, Medications, Previous Orders, Radiology Changes from previous H/P or p: No Changes Eyes: No Pain, No Vision change, No Conjunctivae inflammation, No Eyelid inflammation, No Other, No Redness ENT: No Ear pain, No Ear discharge, No Nose pain, No Nose discharge, No Nose congestion, No Mouth pain, No Mouth swelling, No Throat pain, No Throat swelling, No Other Cardiovascular: Chest Pain; No Palpitations, No Orthopnea, No Paroxysmal Noc. Dyspnea, No Edema, No Lt Headedness, No Other Respiratory: Cough, Dry, Shortness of breath; No SOB with excertion, No Wheezing, No Hemoptysis, No Pleuritic Pain, No Sputum, No Other Gastrointestinal: No Nausea, No Vomiting, No Abdominal Pain, No Diarrhea, No Constipation, No Melena, No Hematochezia, No Other Genitourinary: No Dysuria, No Frequency, No Incontinence, No Hematuria, No Retention, No Other Musculoskeletal: No other, No neck pain, No shoulder pain, No arm pain, No back pain, No hand pain, No leg pain, No foot pain Skin: No Rash, No Lesions, No Jaundice, No Bruising, No Other Objective Vitals Vital Signs Date Time Temp Pulse Resp B/P (MAP) Pulse Ox O2 Delivery O2 Flow Rate FiO2 06/19/24 10:12 85 14 100 06/19/24 10:05 Nasal Cannula* 4 36 06/19/24 09:00 97.8 117/55 (75) 97.8 Intake/Output Intake and Output 06/19/24 07:00 Intake Total 900 ml Balance 900 ml Intake Oral 900 ml # Voids 7 Medications Current Medications Medications Dose Ordered Sig/Dharmesh Route Start Time Stop Time Status Last Admin Dose Admin Ceftriaxone Sodium 50 ml @ 100 mls/hr DAILY@0900 IV 06/16/24 16:55 06/18/24 08:56 100 MLS/HR Azithromycin 500 mg DAILY PO 06/17/24 10:00 06/19/24 08:37 500 MG Albuterol 2.5 mg Q4HPRN PRN NEB 06/16/24 16:30 06/19/24 10:03 2.5 MG Ipratropium [place] 0.5 mg Q4HPRN PRN NEB 06/16/24 16:30 06/19/24 10:03 0.5 MG Methylprednisolone Sodium Succinate 40 mg BID IV 06/16/24 22:00 06/18/24 21:29 40 MG Metoprolol Tartrate 50 mg DAILY PO 06/17/24 10:00 Hold Atorvastatin Calcium 40 mg HS PO 06/16/24 22:00 06/18/24 21:29 40 MG Sodium Chloride 1,000 ml @ 60 mls/hr [id number] IV 06/16/24 16:30 06/18/24 22:36 60 MLS/HR Al Hydrox/Mg Hydrox/Simethicone 30 ml Q6HP PRN PO 06/16/24 16:30 Docusate Sodium 100 mg BIDPRN PRN PO 06/16/24 16:30 06/19/24 08:36 100 MG Acetaminophen 650 mg Q6HP PRN PO 06/16/24 16:30 06/17/24 00:56 650 MG Acetaminophen/ Hydrocodone Bitart 1 tab Q4HP PRN PO 06/16/24 16:30 06/19/24 08:37 1 TAB Ondansetron HCl 4 mg Q4HP PRN IV 06/16/24 16:30 Morphine Sulfate 2 mg Q4HPRN PRN IV 06/16/24 16:30 Trazodone HCl 50 mg HS PO 06/18/24 22:00 06/18/24 21:29 50 MG Laboratory Results Laboratory Tests 06/18/24 07:04 Urinalysis Test 06/16/24 19:25 Urine Color Colorless (Yellow) Urine Clarity Clear (Clear) Urine pH 7.0 (5.0-9.0) Urine Specific [place] 1.004 (1.001-1.035) Urine Protein Negative (Negative) Urine Ketones Negative (Negative) Urine Blood Negative /uL (Negative) Urine Nitrite Negative (Negative) Urine Bilirubin Negative (Negative) Urine Urobilinogen Normal mg/dL (Negative) Urine Leukocyte Esterase Negative /uL (Negative) Urine RBC 2 /hpf (0 - 4) Urine WBC <1 /hpf (0 - 5) Urine Squamous Epithelial Cells Few /hpf (<5) Urine Bacteria None seen /hpf (None Seen) Urine Glucose Normal mg/dL (Normal) Microbiology Microbiology Date/Time Source Procedure Growth Status 06/16/24 19:10 Nose MRSA Screen - Final Complete Labs and/or images reviewed: Labs reviewed by me, Image(s) reviewed by me Assessment/Plan Assessment/Plan Acute hypoxic respiratory failure likely due to left lower lobe pneumonia Rocephin azithromycin Acute COPD exacerbation: Albuterol med nebs Solu-Medrol D-dimer 2.95, PE ruled out Hypertension Hypercholesterolemia History of CVA Chronic history of smoking quit 20 years ago Use of home oxygen 3 L per minute Plan discussed with: Patient My Orders Orders - CINDY SULLIVAN MD Procedure Category Date Status Time Ct Angio Chest CT 06/18/24 Resulted Contrast 11:48 Date of Service: Jun 19, 2024 Billing Provider: CINDY SULLIVAN MD Common Visit Codes: [id number] INP/OBS CARE(HIGH) CINDY SULLIVAN MD Jun 19, 2024 11:09
[2024-06-19] MEDS ORDERED: AZIT500T66 PO (11:26)
--- NOTE | 2024-06-19 11:30 | DVHDS2 ---
Discharge Summary Date of Admission Jun 16, 2024 at 16:27 Date of Discharge: Jun 19, 2024 Admitting Diagnosis Shortness of breaths Wounds: None Labs/Diagnostic Data: Laboratory Results Test 06/18/24 07:04 06/18/24 02:10 06/17/24 13:34 06/16/24 19:25 White Blood Count 8.6 10^3/uL (4.4-10.8) Red Blood Count 3.66 10^6/uL (4.0-5.20) Hemoglobin 11.7 g/dL (12.2-16.2) Hematocrit 34.6 % (36.0-46.0) Mean Corpuscular Volume 94.5 fL (80.0-100.0) Mean Corpuscular Hemoglobin 32.0 pg (28.0-32.0) Mean Corpuscular Hemoglobin Concent 33.8 g/dL (32.0-36.0) Red Cell Distribution Width 15.1 % (11.8-14.3) Platelet Count 183 10^3/uL (140-450) Mean Platelet Volume 7.2 fL (6.9-10.8) Neutrophils (%) (Auto) 92.4 % (37.0-80.0) Lymphocytes (%) (Auto) 4.4 % (10.0-50.0) Monocytes (%) (Auto) 3.2 % (0.0-12.0) Eosinophils (%) (Auto) 0.0 % (0.0-7.0) Basophils (%) (Auto) 0.0 % (0.0-2.0) Neutrophils # (Auto) 8.0 10 ^3/uL (1.6-8.6) Lymphocytes # (Auto) 0.4 10 ^3/uL (0.4-5.4) Monocytes # (Auto) 0.3 10 ^3/uL (0-1.3) Eosinophils # (Auto) 0 10 ^3/uL (0-0.8) Basophils # (Auto) 0 10 ^3/uL (0-0.2) Nucleated Red Blood Cells 0.1 % Sodium Level 139 mmol/L (136-145) Potassium Level 3.9 mmol/L (3.5-5.1) Chloride Level 107 mmol/L (98-107) Carbon Dioxide Level 27 mmol/L (20-31) Anion Gap 5 (5-15) Blood Urea Nitrogen 12 mg/dL (9-23) Creatinine 0.57 mg/dL (0.550-1.02) Glomerular Filtration Rate Calc 92 mL/min (>90) BUN/Creatinine Ratio 21.1 (10.0-20.0) Serum Glucose 114 mg/dL (74-106) Calcium Level 9.2 mg/dL (8.7-10.4) Total Bilirubin 0.4 mg/dL (0.2-1.0) Aspartate Amino Transferase (AST) 14 U/L (13-40) Alanine Aminotransferase (ALT) 22 U/L (7-40) Alkaline Phosphatase 41 U/L (46-116) Total Protein 5.2 g/dL (5.7-8.2) Albumin 3.6 g/dL (3.2-4.8) Influenza Type A Antigen Negative (Negative) Influenza Type B Antigen Negative (Negative) SARS-CoV-2 Antigen (Rapid) Negative (NEGATIVE) D-Dimer, Quantitative 2.95 mg/L FEU (0.0-0.49) Urine Color Colorless (Yellow) Urine Clarity Clear (Clear) Urine pH 7.0 (5.0-9.0) Urine Specific [place] 1.004 (1.001-1.035) Urine Protein Negative (Negative) Urine Ketones Negative (Negative) Urine Blood Negative /uL (Negative) Urine Nitrite Negative (Negative) Urine Bilirubin Negative (Negative) Urine Urobilinogen Normal mg/dL (Negative) Urine Leukocyte Esterase Negative /uL (Negative) Urine RBC 2 /hpf (0 - 4) Urine WBC <1 /hpf (0 - 5) Urine Squamous Epithelial Cells Few /hpf (<5) Urine Bacteria None seen /hpf (None Seen) Urine Glucose Normal mg/dL (Normal) Test 06/16/24 14:44 Differential Total Cells Counted 100.0 (100) Neutrophils % (Manual) 85 (37.0-80.0) Band Neutrophils % (Manual) 0 Lymphocytes % (Manual) 10 (10.0-50.0) Monocytes % (Manual) 5 (0-12) Eosinophils % (Manual) 0 (0-7) Basophils % (Manual) 0 (0.0-2.0) Metamyelocytes % (manual) 0 Myelocytes % (Manual) 0 Promyelocytes % (Manual) 0 Blast Cells % (Manual) 0 Reactive Lymphocytes 0 Platelet Estimate Adequate Ovalocytes Few Other Laboratory Tests 06/18/24 07:04 Brief Hx & Hospital Course: 79-year-old female with a history of COPD on home oxygen hypertension hypercholesterolemia history of CVA chronic history of smoking quit 20 years ago came in complaining of shortness of breaths patient was treated for acute respiratory failure found to have left lower lobe pneumonia treated with Rocephin azithromycin D-dimer is elevated 2.95 PE ruled out. COPD exacerbation treated with albuterol Atrovent and Solu-Medrol patient feels better now and on 2 L of oxygen which is her usual home requirement . patient's daughter Kyung RN at bedside along with the other sister. Requesting to be discharged on hospice. Discharged on hospice. Prescription for azithromycin and Medrol Dosepak transmitted to the pharmacy Consults/Reason for consult None Operations or Procedures CT chest angiogram Condition at Discharge: Fair Final Diagnosis/Problems List Acute hypoxic respiratory failure likely due to left lower lobe pneumonia Rocephin azithromycin Acute COPD exacerbation: Albuterol med nebs Solu-Medrol D-dimer 2.95, PE ruled out Hypertension Hypercholesterolemia History of CVA Chronic history of smoking quit 20 years ago Use of home oxygen 3 L per minute Discharge Disposition: Hospice - Home Discharge Instruct/Medications Diet: Cardiac 2g Na,low cholest Activity: Light activity Follow Up/Referral: Continue All previous home medications Follow up with your primary Dr in one week Medications: Transmitted to the pharmacy 39 (Time taken For discharge summary 39 minutes) Discharge Statement: "Patient was advised to return to the ER or call 911 if any headaches, dizziness, shortness of breath, chest pain, abdominal pain, bleeding, fevers, or worsening of medical condition. Patient was counseled about treatment plan, medications, possible side effects, patientverbalized understanding. All questions were answered to the best of my ability. This discharge took greater then 30 minutes in planning, reviewing documentation, counseling the patient, and discussing with other team members." ASSESSMENT ASSESSMENT Hospital Course Improved Assessment Acute hypoxic respiratory failure likely due to left lower lobe pneumonia Rocephin azithromycin Acute COPD exacerbation: Albuterol med nebs Solu-Medrol D-dimer 2.95, PE ruled out Hypertension Hypercholesterolemia History of CVA Chronic history of smoking quit 20 years ago Use of home oxygen 3 L per minute Date of Service: Jun 19, 2024 Billing Provider: CINDY SULLIVAN MD Common Visit Codes: [id number] DISCH DAY >30min CINDY SULLIVAN MD Jun 19, 2024 11:30
[2024-06-19] MEDS ORDERED: METH4PAK PO (11:31)
--- NOTE | 2024-06-22 10:14 | ECG ---
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
== END 2024-06-19 14:48 | disposition hospice, home (50) | DRG 177 ==
LOC: EDBD 12:07 → ER 12:07 → OVERFLOW 16:27 → WEST WING 18:12
PROVIDERS: ADMIT Hospitalist; ATTEND Family Medicine
DX: J15.69 Pneumonia due to other Gram-negative bacteria (principal); J96.01 Acute respiratory failure with hypoxia; J44.1 Chronic obstructive pulmonary disease with (acute) exacerbation; J44.0 Chronic obstructive pulmonary disease with (acute) lower respiratory infection; J15.9 Unspecified bacterial pneumonia; Z20.822 Contact with and (suspected) exposure to COVID-19; I10 Essential (primary) hypertension; I25.10 Atherosclerotic heart disease of native coronary artery without angina pectoris; E78.00 Pure hypercholesterolemia, unspecified; Z87.440 Personal history of urinary (tract) infections; Z86.73 Personal history of transient ischemic attack (TIA), and cerebral infarction without residual deficits; Z87.891 Personal history of nicotine dependence; Z99.81 Dependence on supplemental oxygen
CPT/HCPCS: 36415; 71045; 71275; 80048; 80053; 81001; 85007; 85025; 85027; 85379; 87081; 87426; 87804; 93005; 94640; 96374; 99291; G0378